=== PATIENT | male | born 1990 | race Caucasian/White ===

== ENCOUNTER 2021-08-01 20:00 | Emergency (ER) | payer SELFPAY ==
[~2021-08-01] VITALS: Ht 175.3 cm; Wt 90.7 kg
--- NOTE | 2021-08-01 20:10 | NUR ---
BIBBROTHER. 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 +NAUSEA. A/OX4. TOLERATING R/A WELL WITH NO SOB. CONNECTED PT TO POX WITH MONITOR.
--- NOTE | 2021-08-01 20:24 | NUR ---
RUBBERIZING MECHANIC AT PT'S BEDSIDE
[2021-08-01] MEDS ORDERED: NITROGLYCERIN 0.4 MG/TAB BOTTLE ONE (20:28)
[2021-08-01] MEDS ORDERED: ASPIRIN 325 MG TABLET ONE (20:28)
[2021-08-01] MEDS ORDERED: NITROGLYCERIN 0.4 MG/TAB BOTTLE SL ONE (20:30)
[2021-08-01] MEDS ORDERED: ASPIRIN 325 MG TABLET PO ONE (20:30)
--- NOTE | 2021-08-01 20:45 | NUR ---
RAC #[id number] S/L; PATENT AND INTACT. BLOOD COLLECTED AND SENT TO LAB
--- NOTE | 2021-08-01 20:57 | NUR ---
BARTENDER HELPER AT PT'S BEDSIDE
[2021-08-01 21:04] LABS: BASOPHILS % (AUTO) 0.5 % (0.0-2.0); EOSINOPHILS % (AUTO) 3.9 % (0.0-6.0); HEMATOCRIT 41 % (39-51); HEMOGLOBIN 13.8 g/dL (13.5-17.5); LYMPHOCYTES # (AUTO) 1.8 K/uL (0.8-4.8); LYMPHOCYTES % (AUTO) 21.9 % (20.0-44.0); MEAN CORPUSCULAR HGB CONC 34 g/dl (31.0-36.0); MEAN CORPUSCULAR VOLUME 83 fL (80-96); MONOCYTES # (AUTO) 0.5 K/uL (0.1-1.30); MONOCYTES % (AUTO) 6.5 % (2.0-12.0); NEUTROPHILS # (AUTO) 5.4 K/uL (1.8-8.9); NEUTROPHILS % (AUTO) 67.2 % (43.0-81.0); PLATELET COUNT (AUTO) 245 K/uL (150-450); RED BLOOD CELL COUNT(AUTO) 4.94 MIL/uL (4.5-6.0)
[2021-08-01 21:13] LABS: CALCIUM, SERUM 8.9 mg/dL (8.5-10.1); CARBON DIOXIDE 32 mmol/L (21-32); CHLORIDE 102 mmol/L (98-107); CREATININE 1.1 mg/dL (0.6-1.3); GLUCOSE 121 mg/dL (74-106); POTASSIUM 3.7 mmol/L (3.5-5.1); SODIUM SERUM 139 mmol/L (136-145); UREA NITROGEN, BLOOD 16 mg/dL (7-18)
[2021-08-01 22:28] VITALS: BP 130/85
--- NOTE | 2021-08-01 22:28 | NUR ---
Patient discharged to home in stable condition. Written and verbal after care instructions given. Patient verbalizes understanding of instruction.
== END 2021-08-01 22:28 | disposition home or self-care (01) ==
LOC: ER 20:07
DX: R07.89 Other chest pain (principal)
CPT/HCPCS: 36415; 71045-TC; 80048-TC; 83880; 84484-TC; 85025-TC